=== PATIENT | male | born 2000 | race Caucasian/White ===

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

== ENCOUNTER 2019-12-25 12:23 | Emergency (ER) | payer OTHER, SELFPAY ==
[2019-12-25 12:25] VITALS: BP 141/88; PULSE 93; RESP 18; TEMP 36.8; O2SAT 98; BMI 32.5
--- NOTE | 2019-12-25 12:54 | ED.VISSUMM ---
- ER Visit Summary Date of Service: 12/25/19 Chief Complaint: [Suicidal ideation] History of Present Illness: The patient is a 19 M [presents to the emergency department with complaint of feeling suicidal for the last 3 months. Patient states that he spoke with his psychiatrist he was gonorrhoeae new his medications today and was advised to come to the emergency department. Patient states that he no longer feels like he can keep himself safe. Patient states that he cut his wrist 3 days ago but they were superficial lacerations. He has not attempted anything recently to harm himself. Patient does not have an exact plan. He denies any auditory or visual hallucinations. Patient last was admitted to psychiatric facility about a year and a half ago. Patient does vape. And he admits to marijuana use recently.] Physical Examination: [HEENT-PERRLA, EOMI. Cranial nerves II through XII grossly intact. TMs clear. Mucous membranes moist. No adenopathy. Cardiovascular-regular rate and rhythm without murmur or ectopy Lungs-clear to auscultation, chest wall stable without crepitus or subcu emphysema Abdomen-normoactive bowel sounds, soft, nontender, no rebound or rigidity, no peritoneal signs. Extremities-intact ?4, normal range of motion, normal pulses, atraumatic] Test Results: [CBC with it was normal. Chemistries unremarkable. Toxicology screen positive for methamphetamines. Alcohol was negative.] Emergency Department Course and Treatment: [Patient will be evaluated by elementary school social worker and we will make arrangements to transfer patient to psychiatric facility for further stabilization.] Treatment Plan: [Transfer to psychiatric facility] Disposition: [Transfer] Impression: [Suicidal ideation Depression] This note was generated with Trivie dictation software. It may contain incorrect words, spelling, and punctuation that were not noted in review of the chart prior to signing ED Disposition - Plan for ED Patient: Referrals: [facility] Doctor,Out of [NON-STAFF] -
[2019-12-25 13:24] VITALS: RESP 16
[2019-12-25 13:28] LABS: Absolute Lymphocyte Count 2.71 X10^3/uL (0.83-4.51); Basophil# 0.05 X10^3/uL; Basophil% 0.5 % (0-1); Eosinophil# 0.09 X10^3/uL; Hematocrit 43.3 % (40-54); Hemoglobin 15.2 g/dL (13.0-16.5); Lymphocyte # 2.71 X10^3/ul (4.0); Lymphocyte % 28.7 % (19-41); Mean Corp Hgb Conc 35.1 g/dL (32-36); Mean Corpuscular Hgb 30.4 pg (27.0-32.0); Mean Corpuscular Volume 86.6 fL (80-94); Mean Platelet Vol. 10.3 fl (6.2-12.0); Monocyte# 0.53 X10^3/uL; Monocyte% 5.6 % (0-10); NRBC Flagged by Analyzer 0 % (0-5); Neutrophil # 6.01 X10^3/uL (2.7-7.7); Neutrophil % 63.8 % (47-70); Platelet Count 240 K/mm3 (150-450); RBC Distribution Width CV 12.3 % (11.6-14.6); RBC Distribution Width SD 38.9 fl (35.1-43.9); White Blood Count 9.4 K/mm3 (4.4-11.0)
--- NOTE | 2019-12-25 13:36 | ED.RN ---
CASE MANAGEMENT AT BEDSIDE TO EVALUATE PATIENT.
[2019-12-25 13:48] LABS: Amphetamine Urine VISTA NEGATIVE (<1000 ng/mL); Anion Gap 7 (5-15); BUN 11 mg/dL (7-18); BUN/Creat Ratio 9.2 RATIO (10-20); Barbiturate Urine VISTA NEGATIVE (< 200 ng/mL); Benzodiazepine Urine VISTA NEGATIVE (< 200 ng/mL); Calcium,Total 8.7 mg/dL (8.5-10.1); Chloride 108 mmol/L (98-107); Cocaine Urine VISTA NEGATIVE (< 300 ng/mL); Creatinine, Serum 1.19 mg/dL (0.70-1.30); EST Glomerular Filtration Rate 83 mL/min (>60); Ecstacy Urine VISTA POSITIVE (< 500 ng/mL); Est Glom Filt Rate - Afr Amer 100 mL/min (>60); Estimated Creatinine Clearance 108.68 ml/min; Glucose 95 mg/dL (74-106); Methadone Urine VISTA NEGATIVE (< 300 ng/mL); PCP Urine VISTA NEGATIVE (< 25 ng/mL); Potassium 3.4 mmol/L (3.5-5.1); Sodium Level 141 mmol/L (136-145); THC Urine VISTA NEGATIVE (< 50 ng/mL); Vista UDS pH Range 7
--- NOTE | 2019-12-25 14:50 | CM.ED ---
Social Work Consult: Suicidal Informant: Dr. Rivera Chief Complaint: Patient stating to have attempted to kill self yesterday. Marital/Social History: Single Living Situation: Lives with father, Heron Cantu Support/Resource: Active with psychiatric services through [facility]. History: None Education/Employment History: Completed high school. Reporting to have difficulty focusing. Denies any concerns with reading and writing. Mental Health Treatment/History: Depression and Anxiety. Currently on medications and stating to be compliant with medications. Patient with history of inpatient psychiatric hospitalizations in the past and stating that last placement was in 2018. Triggers/Stressors: None Coping Skills: Video Games, Journaling. Abuse Issues: None Substance Abuse Hx: History of THC use but stating last use was 5 months ago. 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 Denies any other substance abuse/use. Risk to Self/Others: Patient stating to have active suicidal thoughts with plan to complete suicide by slitting throat with knife. Patient stating to have had knife to patient throat yesterday for 10min. Patient stating to have been able to stop self and to have told patient psychiatrist about attempt today. Patient psychiatrist recommending for patient to come to hospital for inpatient placement. Patient stating to not feel safe to self and to have suicidal urges 2-3 times a day for around 10min. periods of time. Patient stating to have history of suicide attempt via overdose in 2017 and to have been hospitalized at that time. Patient denies any homicidal thoughts/plans. Mental Status Exam: A&Ox3 Appearance/General Behavior: Clean/Appropriate. Mood/Affect: Appropriate. Communication Pattern: Responds to questions. Thought Process: Appropriate. Denies any hallucinations/delusions. Assessment: Met with patient in room. Introduced self as well as social contact worker role. Patient is agreeable to speaking with this social contact worker. Patient stating to need help. Patient stating to not feel safe to self. Patient stating to have been more depressed over the past few days with attempt to harm self yesterday. Patient with history of self-harming behavior (cutting arms). Patient stating to live with father but that patient father works outside of the home and patient does not see patient much. Patient stating to spend most days alone. Patient mother, Rafaela Adrian checks in with patient daily via txt or phone call. Patient is agreeable to this social contact worker speaking with patient mother and actually requesting for this social contact worker to speak with patient mother. Telephone call to Rafaela Campbell ([phone]). Jose Enrique stating to be concerned about patient and that patient has been stating that patient needs help over the past few days. Rafaela stating that patient does not typically reach out for help and is typically not open with this information. Rafaela stating to believe that patient is not safe to self. Collaborating with Dr. Rivera. Plan is for placement to inpatient psychiatric facility due to suicidal thoughts and plan to harm self. Randall Aguilar POSITION CLASSIFICATION SPECIALIST, JERMAN
[2019-12-25 15:00] VITALS: RESP 18
--- NOTE | 2019-12-25 15:20 | CM.ED ---
Social Work Telephone call to [facility]. Shanel confirming open beds and to accept patient insurance. Clinical information faxed. Pending review. Randall CARLOS, JERMAN
[2019-12-25 16:00] VITALS: BP 133/87; PULSE 85; RESP 18; O2SAT 99
--- NOTE | 2019-12-25 16:27 | CM.ED ---
[place] [facility]. [facility] has been accepted to [facility]. Nurse to call report to: [phone]. Admitting is Dr. Escudero. [place] [facility] faxed. Updated patient, patient mother, Dr. Carrasco and medical team. Maintenance Trainer to set up transportation. PLAN: Discharge to [facility]. Randall CARLOS, JERMAN
--- NOTE | 2019-12-25 16:36 | NURSING ---
ACCEPTED AT [facility]
--- NOTE | 2019-12-25 16:52 | NURSING ---
CALLED PHYSICANS, ETA IS 3 HRS. THEY ARE GOING TO CALL AROUND FOR A RIDE
[2019-12-25 17:00] VITALS: RESP 18
--- NOTE | 2019-12-25 17:00 | NURSING ---
PHYSICANS CALLED BACK. [facility] IS COMING IN ABOUT 1 HR
[2019-12-25 18:00] VITALS: RESP 16
--- NOTE | 2019-12-25 18:45 | ED.RN ---
CALLED [facility] TO CHECK THE STATUS OF THIS TRANSPORT, WAITING FOR A CALL BACK
--- NOTE | 2019-12-25 19:03 | ED.RN ---
transport at bedside. report given.
== END 2019-12-25 19:05 ==
LOC: ED 14:15
PROVIDERS: Emergency Provider Emergency Medicine
DX: R45.851 Suicidal ideations (principal); F32.9 Major depressive disorder, single episode, unspecified; F12.90 Cannabis use, unspecified, uncomplicated; Z72.0 Tobacco use
CPT/HCPCS: 80048; 80307; 80320; 85025; 99285; G0480

== ENCOUNTER 2020-06-29 17:22 | Emergency (ER) | payer OTHER, SELFPAY ==
[2020-06-29 17:24] VITALS: BP 132/80; PULSE 106; RESP 18; TEMP 36.7; O2SAT 96; BMI 31.5
--- NOTE | 2020-06-29 17:41 | EKG12_ITS ---
Test Reason : Blood Pressure : / mmHG Vent. Rate : 082 BPM Atrial Rate : 082 BPM P-R Int : 148 ms QRS Dur : 088 ms QT Int : 378 ms P-R-T Axes : 076 083 048 degrees QTc Int : 441 ms Normal sinus rhythm Normal ECG Confirmed by JULIAN BARAHONA, EYAL ([id number]), news assignment editor JUNITO ANDRADE ([id number]) on 07/02/2020 9:36:27 AM Referred By: Confirmed By:EYAL JORDAN MD
--- NOTE | 2020-06-29 17:42 | ED.DCSUM_ITS ---
History of Present Illness Chief Complaint: Suicidal Informant: Patient Narrative: 1-year-old male states that he is experiencing suicidal thoughts. He tells me that 3 days ago he broke up with his girlfriend. This upset him a lot. Then yesterday his ex-girlfriend's best friend had was killed in a car accident and because she was upset about that it made him upset. He used a knife today to cause some superficial injuries to the left arm. He states he would prefer not to act on his suicidal thoughts so he decided to come to the hospital. He has been hospitalized for suicidal ideation in the past. He states that the last time was about 1 year ago. He has had no psychiatric medication changes. He still sees his psychiatrist regularly. He also notes that his suicidal thoughts have been present for 3 years. Reportedly this week he and his family have been in contact with crisis. Crisis tells me that they were talking to him daily but over the past couple phone calls nobody has picked up. Past Medical History - Allergies and Home Meds Allergies/Adverse Reactions: Allergies No Known Allergies Allergy (Verified 06/29/20 17:24) Primary Care Physician: NOT,DEFINED [NON-STAFF] - Past Medical History: - - Depression Surgical History: noncontributory Smoking Status: Current every day smoker Drugs: Marijuana Review of Systems General: Denies: Chills, Fever, Sweats Eyes: Denies: Visual changes - bilaterally, Diplopia ENT: Denies: Rhinorrhea, Sore throat Cardiovascular: Denies: Chest pain, Palpitations Respiratory: Denies: Dyspnea, Cough, Dyspnea on exertion Gastrointestinal: Denies: Abdominal pain, Nausea, Vomiting, Diarrhea, Melena, Hematochezia Genitourinary: Denies: Dysuria, Hematuria, Frequency Musculoskeletal: Denies: Back pain, Extremity Pain Skin: Reports: Wounds. Denies: Rash Neurological: Denies: Headache, Weakness, Numbness Psych: Reports: Depression, Suicidal thoughts, Suicidal ideations Physical Exam Vital Signs/Narrative: Vital Signs Temp Pulse Resp BP Pulse Ox 06/29/20 17:24 98.0 F 106 H 18 132/80 H 96 Inital Vital Signs reviewed: Yes General: Well nourished, Well developed, No Acute Distress Head: Normocephalic, Atraumatic Eyes: Perrl, EOMI ENT: Moist mucous membranes, No rhinorrhea Neck: Supple, Nontender Cardiovascular: Regular rate, Regular rhythm, No murmurs Respiratory: No distress, CTA bilaterally, Chest nontender Abdomen: Soft, Nontender, Nondistended, Normal bowel sounds Back: Nontender, Normal Inspection Extremities: Nontender, No edema Skin: Normal color, No rash, Trauma - There are some superficial linear cuts to the left volar wrist. Neurological: Alert, Oriented x3, Cranial nerves II-XII grossly intact, Normal Strength, Normal Sensation Psychological: Depressed, - - Patient admits to suicidal ideation. He denies any auditory or visual hallucinations. No homicidal ideation Diagnostic/Tx/Re-eval Laboratory Last Values WBC 8.8 K/mm3 (4.4-11.0) 06/29/20 17:50 RBC 5.05 M/mm3 (4.6-6.2) 06/29/20 17:50 Hgb 15.4 g/dL (13.0-16.5) 06/29/20 17:50 Hct 44.2 % (40-54) 06/29/20 17:50 MCV 87.5 fL (80-94) 06/29/20 17:50 MCH 30.5 pg (27.0-32.0) 06/29/20 17:50 MCHC 34.8 g/dL (32-36) 06/29/20 17:50 RDW Std Deviation 39.4 fl (35.1-43.9) 06/29/20 17:50 RDW Coeff of Gaby 12.3 % (11.6-14.6) 06/29/20 17:50 Plt Count 284 K/mm3 (150-450) 06/29/20 17:50 MPV 10.1 fl (6.2-12.0) 06/29/20 17:50 Immature Gran % (Auto) 0.200 % (0.0-0.9) 06/29/20 17:50 Neut % (Auto) 72.8 % (47-70) H 06/29/20 17:50 Lymph % (Auto) 19.2 % (19-41) 06/29/20 17:50 Webster % (Auto) 6.9 % (0-10) 06/29/20 17:50 Eos % (Auto) 0.3 % (0-5) 06/29/20 17:50 Baso % (Auto) 0.6 % (0-1) 06/29/20 17:50 Absolute Neuts (auto) 6.4 X10^3/uL (2.0-7.7) 06/29/20 17:50 Absolute Lymphs (auto) 1.69 X10^3/uL (0.83-4.51) 06/29/20 17:50 Nucleated RBC % 0 % (0-5) 06/29/20 17:50 Sodium 140 mmol/L (136-145) 06/29/20 17:50 Potassium 3.5 mmol/L (3.5-5.1) 06/29/20 17:50 Chloride 109 mmol/L (98-107) H 06/29/20 17:50 Carbon Dioxide 27.0 mmol/L (21.0-32.0) 06/29/20 17:50 Anion Gap 4 (5-15) L 06/29/20 17:50 BUN 11 mg/dL (7-18) 06/29/20 17:50 Creatinine 1.06 mg/dL (0.70-1.30) 06/29/20 17:50 Estim Creat Clear Calc 122.01 ml/min 06/29/20 17:50 Est GFR (MDRD) Af Amer 114 mL/min (>60) 06/29/20 17:50 Est GFR (MDRD) Non-Af 94 mL/min (>60) 06/29/20 17:50 BUN/Creatinine Ratio 10.4 RATIO (10-20) 06/29/20 17:50 Glucose 104 mg/dL (74-106) 06/29/20 17:50 Calcium 9.0 mg/dL (8.5-10.1) 06/29/20 17:50 Urine Opiates Screen NEGATIVE (< 300 ng/mL) 06/29/20 18:40 Urine Methadone Screen NEGATIVE (< 300 ng/mL) 06/29/20 18:40 Ur Barbiturates Screen NEGATIVE (< 200 ng/mL) 06/29/20 18:40 Ur Phencyclidine Scrn NEGATIVE (< 25 ng/mL) 06/29/20 18:40 Ur Amphetamines Screen NEGATIVE (<1000 ng/mL) 06/29/20 18:40 U Methamphetamin-MDMA POSITIVE (< 500 ng/mL) H 06/29/20 18:40 U Benzodiazepines Scrn NEGATIVE (< 200 ng/mL) 06/29/20 18:40 Urine Cocaine Screen NEGATIVE (< 300 ng/mL) 06/29/20 18:40 U Cannabinoids Screen POSITIVE (< 50 ng/mL) H 06/29/20 18:40 Ur Drug Screen Comment 06/29/20 18:40 Ethyl Alcohol < 3.0 mg/dL 06/29/20 17:50 - EKG Initial EKG Interpretation: Sinus Rhythm - EKG demonstrates a normal sinus rhythm at a rate of 82. There is no ectopy or concerning features of ACS. QTc 441. - Medical Decision Making The patient was medically cleared. Crisis was asked to evaluate the patient. Please see their note for further details of their assessment. Patient feels that he can go home and be safe. He is willing to come back if he begins to feel unsafe. He has several coping mechanisms that he can use. Crisis will be in touch with him again tomorrow. ED Disposition - Plan for ED Patient: Disposition: Home or Assisted Living Diagnosis: Deliberate self-cutting, Depression, Suicidal ideation Instructions: ED Depression, CONTRACT, No Harm Referrals: Counseling,Center [GROUP OF PHYSICIANS] - As soon as possible
[2020-06-29 18:03] LABS: Absolute Lymphocyte Count 1.69 X10^3/uL (0.83-4.51); Absolute Neutrophil Count 6.4 X10^3/uL (2.0-7.7); Basophil# 0.05 X10^3/uL; Basophil% 0.6 % (0-1); Eosinophil# 0.03 X10^3/uL; Eosinophils% 0.3 % (0-5); Hematocrit 44.2 % (40-54); Hemoglobin 15.4 g/dL (13.0-16.5); Lymphocyte # 1.69 X10^3/ul (4.0); Lymphocyte % 19.2 % (19-41); Mean Corp Hgb Conc 34.8 g/dL (32-36); Mean Corpuscular Hgb 30.5 pg (27.0-32.0); Mean Corpuscular Volume 87.5 fL (80-94); Mean Platelet Vol. 10.1 fl (6.2-12.0); Monocyte# 0.61 X10^3/uL; Monocyte% 6.9 % (0-10); NRBC Flagged by Analyzer 0 % (0-5); Neutrophil # 6.42 X10^3/uL (2.7-7.7); Neutrophil % 72.8 % (47-70); Platelet Count 284 K/mm3 (150-450); RBC Distribution Width CV 12.3 % (11.6-14.6); RBC Distribution Width SD 39.4 fl (35.1-43.9); Red Blood Count 5.05 M/mm3 (4.6-6.2); White Blood Count 8.8 K/mm3 (4.4-11.0)
[2020-06-29 18:12] LABS: Anion Gap 4 (5-15); BUN 11 mg/dL (7-18); BUN/Creat Ratio 10.4 RATIO (10-20); Chloride 109 mmol/L (98-107); Creatinine, Serum 1.06 mg/dL (0.70-1.30); EST Glomerular Filtration Rate 94 mL/min (>60); Est Glom Filt Rate - Afr Amer 114 mL/min (>60); Estimated Creatinine Clearance 122.01 ml/min; Glucose 104 mg/dL (74-106); Potassium 3.5 mmol/L (3.5-5.1); Sodium Level 140 mmol/L (136-145)
[2020-06-29 18:24] LABS: Alcohol, Blood (Medical)-Serum < 3.0 mg/dL
--- NOTE | 2020-06-29 18:43 | ED.RN ---
CALLED CRISIS TO SEE THIS PT, REPORT FAXED TO THE NUMBER REQUESTED
[2020-06-29 19:05] LABS: Amphetamine Urine VISTA NEGATIVE (<1000 ng/mL); Barbiturate Urine VISTA NEGATIVE (< 200 ng/mL); Benzodiazepine Urine VISTA NEGATIVE (< 200 ng/mL); Cocaine Urine VISTA NEGATIVE (< 300 ng/mL); Ecstacy Urine VISTA POSITIVE (< 500 ng/mL); Methadone Urine VISTA NEGATIVE (< 300 ng/mL); PCP Urine VISTA NEGATIVE (< 25 ng/mL); THC Urine VISTA POSITIVE (< 50 ng/mL); Vista UDS pH Range 7
--- NOTE | 2020-06-29 19:07 | ED.RN ---
[facility]ISIS ON THE PHONE WITH THE PT
[2020-06-29 21:03] VITALS: RESP 16
== END 2020-06-29 21:04 | disposition home or self-care (01) ==
PROVIDERS: Emergency Provider Emergency Medicine; PCP Pediatrics
DX: R45.851 Suicidal ideations (principal); F32.9 Major depressive disorder, single episode, unspecified; F17.200 Nicotine dependence, unspecified, uncomplicated; X78.1XXA Intentional self-harm by knife, initial encounter
CPT/HCPCS: 36415; 80048; 80307; 80320; 85025; 87426; 93005; 99283; G0480